=== PATIENT | female | born 1975 | race Caucasian/White ===

== ENCOUNTER 2017-05-31 01:00 | Emergency (ER) | payer MEDICAID ==
[~2017-05-31] VITALS: Ht 170.2 cm; Wt 64.0 kg
[~2017-05-31 01:00] MED LIST: DENIES
[2017-05-31 01:08] VITALS: Ht 170.2 cm; Wt 64.0 kg
[2017-05-31] MEDS ORDERED: SOD CHLORIDE 0.9% 1,000 ML IV ONE (02:00)
[2017-05-31] MEDS ORDERED: METOCLOPRAMIDE 10 MG INJ IV ONE (02:00)
[2017-05-31] MEDS ORDERED: DIPHENHYDRAMINE 50 MG INJ IV ONE (02:00)
--- NOTE | 2017-05-31 02:57 | RADRPT ---
PROCEDURE: Noncontrast CT Head. CLINICAL INDICATION: Pain. TECHNIQUE: Noncontrast CT of the head was obtained. The administered radiation dose was CTDI vol = 45 mGy, DLP = 720 mGy-cm. COMPARISON: No pertinent prior examinations were submitted for comparison. FINDINGS: The ventricles and sulci are within normal limits. There is no acute intracranial hemorrhage or ext ra-axial fluid collection. There is no mass effect. No midline shift is identified. There is no loss of toscano-white differentiation to suggest acute infarction. The orbits are within normal limits. The paranasal sinuses and mastoid air cells are without fluid. No destructive osseous lesion is identified. IMPRESSION: No acute findings. RPTAT: HIKT .Cole Roberson MD, MD Date Time Electronically viewed and signed by .Cole Roberson MD, on 05/31/2017 02:57 .T/
[2017-05-31] MEDS ORDERED: KETOROLAC 30 MG INJ IV STA (03:03)
[2017-05-31] MEDS ORDERED: FIORICET PO (03:05)
--- NOTE | 2017-05-31 03:15 | ERD ---
ER Documentation Chief Complaint Date/Time DATE: 05/31/17 TIME: 03:08 Chief Complaint SEXTON for 2 days, denies n/v, denies sensitivity HPI Patient is a 41-year-old female who presents the emergency department for headache 2 days. Patient states her current headache is a 10 out of 10. Patient states that the headache is worse when coughing or sneezing. Patient states the pain is throughout her entire head. Patient states that she "never gets headaches". This is the first time patient has had a headache. Patient denies any fevers, chills, neck pain, neck stiffness, blurry vision, nausea, vomiting, photophobia, phonophobia, loss of consciousness. Recent travel. No sick contacts. Patient reports no difficulty ambulating. Patient denies any unilateral weakness. Patient denies any slurred speech. ROS All systems reviewed and are negative except as per history of present illness. Medications Home Meds Active Scripts Acetamin/Butalbital/Caffeine* (Fioricet*) [id number] Tab, 1 TAB PO Q6H Y for PAIN, #15 TAB Prov:FREDI PEÑALOZA PA-C 05/31/17 Reported Medications [Denies] No Conflict Check 10/29/10 Allergies Allergies: Coded Allergies: Penicillins (Verified Allergy, Mild, HIVES, 10/29/10) PMhx/Soc History of Surgery: Yes (BREAST IMPLANTS) Anesthesia Reaction: No Hx Neurological Disorder: No Hx Respiratory Disorders: No Hx Cardiac Disorders: No Hx Psychiatric Problems: No Hx Miscellaneous Medical Probl: No Hx Alcohol Use: Yes (QUIT 2 WEEKS AGO DRINKING VODKA EVERY NIGHT) Hx Substance Use: Yes (GHP/COCAINE QUIT 2 MONTHS AGO) Hx Tobacco Use: Yes (QUIT YEARS AGO) Smoking Status: Current every day smoker Physical Exam Vitals Vital Signs Date Time Temp Pulse Resp B/P Pulse Ox O2 Delivery O2 Flow Rate FiO2 05/31/17 03:20 68 16 124/72 100 05/31/17 01:08 98.7 74 18 147/83 100 Physical Exam GENERAL: Well-developed, well-nourished female. Appears in no acute distress. Speaking in full sentences. HEAD: Normocephalic, atraumatic. EYES: Pupils are equally reactive bilaterally. EOMs grossly intact. No conjunctival erythema. ENT: Moist mucous membranes. No uvula deviation. No kissing tonsils. NECK: Supple. No meningismus. Normal range of motion of the neck. LUNG: Clear to auscultation bilaterally. No rhonchi, wheezing, rales or coarse breath sounds. HEART: Regular rate and rhythm. No murmurs, rubs or gallops. EXTREMITIES: Equal pulses bilaterally. No peripheral clubbing, cyanosis or edema. No unilateral leg swelling. NEUROLOGIC: Alert and oriented x3, cooperative. Mood and affect appropriate to situation. Cranial nerves II through XII are grossly intact. Normal speech. Motor exam: 5/5 strength in upper and lower extremities. Sensory exam: Sensation intact to light touch on all four extremities. Steady gait. No pronator drift. SKIN: Normal color. Warm and dry. No rashes or lesions. Results 24 hrs Current Medications Medications (Trade) Dose Ordered Sig/Aguilar Route PRN Reason Start Time Stop Time Status Last Admin Dose Admin Sodium Chloride (NS) 1,000 ml @ 1,000 mls/hr Q1H ONCE IV 05/31/17 02:00 05/31/17 03:03 DC 05/31/17 02:30 Metoclopramide HCl (Reglan) 10 mg ONCE ONCE IV 05/31/17 02:00 05/31/17 02:01 DC 05/31/17 02:29 Diphenhydramine HCl (Benadryl) 25 mg ONCE ONCE IV 05/31/17 02:00 05/31/17 02:01 DC 05/31/17 02:29 Ketorolac Tromethamine (Toradol) 30 mg ONCE STAT IV 05/31/17 03:03 05/31/17 03:08 DC Procedures/MDM ED COURSE: The patient was stable throughout ED course. I kept the patient and/or family informed of laboratory and diagnostic imaging results throughout the ED course. DIAGNOSTIC IMAGING: Read by radiologist. Patient: CHICA CONROY : 1975 Age: 41 Sex: F MR #: [id number] DOS: 05/31/17 021 Ordering MD: FREDI PEÑALOZA PA-C Location: [facility] Room/Bed: PROCEDURE: Noncontrast CT Head. CLINICAL INDICATION: Pain. TECHNIQUE: Noncontrast CT of the head was obtained. The administered radiation dose was CTDI vol = 45 mGy, DLP = 720 mGy-cm. COMPARISON: No pertinent prior examinations were submitted for comparison. FINDINGS: The ventricles and sulci are within normal limits. There is no acute intracranial hemorrhage or extra-axial fluid collection. There is no mass effect. No midline shift is identified. There is no loss of toscano-white differentiation to suggest acute infarction. The orbits are within normal limits. The paranasal sinuses and mastoid air cells are without fluid. No destructive osseous lesion is identified. IMPRESSION: No acute findings. RPTAT: HIKT .Cole Roberson MD, MD Date Time Electronically viewed and signed by .Cole Roberson MD, MD on 05/31/2017 02:57 .T/ CC: FREDI PEÑALOZA PA-C MEDICATIONS GIVEN: IV fluids, Reglan, Benadryl Patient tolerated medication well with no adverse reactions. Patient reported improvement in pain. MEDICAL DECISION MAKING: This is a 41-year-old female presents with a headache 2 days. Patient is a other current headache was a 10 out of 10. Patient denies any headaches in the past. Vital signs were reviewed. Patient was afebrile. Patient is not hypoxic. Patient denied any fevers, neck stiffness, visual changes or LOC. Full neurological exam was normal. Given the patient denied any headaches in the past and that her current headache was a 10 out of 10, imaging studies of the head were obtained. CT brain was unremarkable. Patient was offered Toradol after CT brain was read to be negative however she stated she did not wish to take any additional medication given that her symptoms were completely resolved. Given these findings, the patient's presentation is most consistent with headache. I have a much lower clinical concern for CVA, intracranial hemorrhage, meningitis, encephalitis, benign intracranial hypertension, intracranial mass, sinusitis, headache, cluster headache. PRESCRIPTIONS: Fioricet DISCHARGE: At this time, patient is stable for discharge and outpatient management. Patient was provided with a copy of imaging studies. I have encouraged the patient to hydrate well. I have instructed the patient to follow-up with his/ her primary care physician in 1-2 days. If symptoms persist, patient may need to see a specialist for further examinations and testing. I have instructed the patient to promptly return to the ER at any time for any new or worsening symptoms including increased increased pain, fever, nausea, vomiting, numbness, neck stiffness, visual changes, weakness or LOC. The patient and/or family expressed understanding of and agreement with this plan. All questions were answered. Home care instructions were provided. Departure Diagnosis: Primary Impression: Headache Headache type: unspecified Headache chronicity pattern: unspecified pattern Intractability: not intractable Qualified Code: R51 - Nonintractable headache, unspecified chronicity pattern, unspecified headache type Condition: Stable Patient Instructions: Self-Care for Headaches Referrals: [facility] YOU HAVE RECEIVED A MEDICAL SCREENING EXAM AND THE RESULTS INDICATE THAT YOU DO NOT HAVE A CONDITION THAT REQUIRES URGENT TREATMENT IN THE EMERGENCY DEPARTMENT. FURTHER EVALUATION AND TREATMENT OF YOUR CONDITION CAN WAIT UNTIL YOU ARE SEEN IN YOUR DOCTORS OFFICE WITHIN THE NEXT 1-2 DAYS. IT IS YOUR RESPONSIBILITY TO MAKE AN APPOINTMENT FOR FOLOW-UP CARE. IF YOU HAVE A PRIMARY DOCTOR --you should call your primary doctor and schedule an appointment IF YOU DO NOT HAVE A PRIMARY DOCTOR YOU CAN CALL OUR PHYSICIAN REFERRAL HOTLINE AT IF YOU CAN NOT AFFORD TO SEE A PHYSICIAN YOU CAN CHOSE FROM THE FOLLOWING [facility] [address] [facility] [address] [facility] [facility] [address] [facility] [facility] [address] [facility] [facility] [address] [facility]. [facility]. [address] [facility] YOU HAVE RECEIVED A MEDICAL SCREENING EXAM AND THE RESULTS INDICATE THAT YOU DO NOT HAVE A CONDITION THAT REQUIRES URGENT TREATMENT IN THE EMERGENCY DEPARTMENT. FURTHER EVALUATION AND TREATMENT OF YOUR CONDITION CAN WAIT UNTIL YOU ARE SEEN IN YOUR DOCTORS OFFICE WITHIN THE NEXT 1-2 DAYS. IT IS YOUR RESPONSIBILITY TO MAKE AN APPOINTMENT FOR FOLOW-UP CARE. IF YOU HAVE A PRIMARY DOCTOR --you should call your primary doctor and schedule and appointment IF YOU DO NOT HAVE A PRIMARY DOCTOR YOU CAN CALL OUR PHYSICIAN REFERRAL HOTLINE AT . IF YOU CAN NOT AFFORD TO SEE A PHYSICIAN YOU CAN CHOSE FROM THE FOLLOWING [facility] INSTITUTIONS: [facility] [address] [place] [address] [facility] [address] [place] [address] [facility] [address] [place] [address] Additional Instructions: Call your primary care doctor TOMORROW for an appointment during the next 1-2 days.See the doctor sooner or return here if your condition worsens before your appointment time. FREDI PEÑALOZA PA-C May 31, 2017 03:15
[2017-05-31 03:20] VITALS: BP 124/72; PULSE 68; RESP 16
== END 2017-05-31 03:34 | disposition home or self-care (01) ==
LOC: FTE 01:00
DX: R51 Headache (principal); F17.210 Nicotine dependence, cigarettes, uncomplicated
CPT/HCPCS: 70450; 96374; 96375; J1200; J2765; J7030; Z7502; J1885